=== PATIENT | female | born 1995 | race Caucasian/White ===

== ENCOUNTER → 2016-11-20 12:27 | Outpatient (CLI) | payer MEDICAID ==
[~2016-11-20 12:27] MED LIST: PRENATAL COMPLE1 TAB PO
== END | disposition home or self-care (01) ==
LOC: D.LDO 12:27
DX: O26.892 Other specified pregnancy related conditions, second trimester (principal); Z3A.24 24 weeks gestation of pregnancy

== ENCOUNTER → 2017-02-04 15:11 | Outpatient (CLI) | payer MEDICAID | END | disposition home or self-care (01) | LOC: D.LDO 15:11 | DX: O36.8130 Decreased fetal movements, third trimester, not applicable or unspecified (principal); Z3A.34 34 weeks gestation of pregnancy ==